=== PATIENT | female | born 1980 | race African-American/Black ===

== ENCOUNTER 2020-09-20 11:35 | Day surgery (SDC) | payer BC, MEDICAID ==
[2020-09-14 10:58] LABS: HEMATOCRIT 39.8 % (36.0-47.0); HEMOGLOBIN 13.5 g/dL (12.0-15.5); MEAN CORPUSCULAR HGB CONC 33.9 g/dL (32.0-36.0); MEAN CORPUSCULAR VOLUME 92 fl (80-97); PLATELET COUNT 362 10^3/uL (150-450); RED BLOOD COUNT 4.34 10^6/uL (3.72-5.28); RED CELL DISTRIBUTION WIDTH 13.8 % (11.5-14.0); WHITE BLOOD COUNT 5.8 10^3/uL (4.0-10.5)
[2020-09-14 10:59] LABS: APPEARANCE,URINE SLIGHTLY-CLOUDY; BILIRUBIN,URINE NEGATIVE (NEGATIVE); COLOR,URINE YELLOW; GLUCOSE, URINE NEGATIVE (NEGATIVE); KETONES,URINE NEGATIVE (NEGATIVE); LEUKOCYTE ESTERASE,URINE NEGATIVE (NEGATIVE); NITRITE,URINE NEGATIVE (NEGATIVE); PROTEIN,URINE 30 mg/dL (NEGATIVE); URINE SPECIFIC GRAVITY 1.019; UROBILINOGEN,URINE NEGATIVE mg/dL (<2.0)
[~2020-09-20 11:35] MED LIST: LACTATED RINGERS 1000 ML IV PRN; LIDOCAINE 0.5% INJ-PF (5 MG/ML) 50 ML SDV SUBCUT PRN
[2020-09-20] MEDS ORDERED: GLYCOPYRROLATE 1 MG/5 ML VIAL ONE (12:31)
[2020-09-20] MEDS ORDERED: NEOSTIGMINE METHYLSULFATE 10 MG/10 ML VIAL ONE (12:31)
[2020-09-20] MEDS ORDERED: SUCCINYLCHOLINE CHLORIDE INJ 200 MG/10 ML VIAL ONE (12:31)
[2020-09-20] MEDS ORDERED: ROCURONIUM BROMIDE INJ 50 MG/5 ML VIAL IV ONE (12:31)
[2020-09-20] MEDS ORDERED: DEXAMETHASONE SOD PHOSPHATE INJ 4 MG/1 ML VIAL ONE (14:15)
[2020-09-20] MEDS ORDERED: PROPOFOL INJ 200 MG/20 ML VIAL IV ONE (14:15)
[2020-09-20] MEDS ORDERED: KETOROLAC TROMETHAMINE 60 MG/2 ML SDV ONE (14:15)
[2020-09-20] MEDS ORDERED: ONDANSETRON HCL INJ/PF 4 MG/2 ML SDV ONE (14:15)
[2020-09-20] MEDS ORDERED: FENTANYL CITRATE INJ/PF 100 MCG/2 ML AMPUL ONE (14:15)
[2020-09-20] MEDS ORDERED: MIDAZOLAM 2 MG/2 ML INJ ONE (14:15)
--- NOTE | 2020-09-20 14:39 | Discharge Summary ---
Discharge Summary (SDC) - Discharge Final Diagnosis: Unwanted fertility Date of Surgery: 09/20/20 Discharge Date: 09/20/20 Condition: Stable Treatment or Instructions: Resume regular diet as tolerated No heavy lifting for 6 weeks Prescriptions: Ibuprofen [Motrin 800 mg Tablet] 800 mg PO Q8H PRN #30 tab PRN Reason: Hydrocodone/Acetaminophen [Stanton 5-325 mg Tablet] 1 tab PO Q6 PRN 5 Days #20 tablet PRN Reason: For Pain Scale 4-5 Hydrocodone/Acetaminophen [Stanton 5-325 mg Tablet] 1 tab PO Q6 PRN 5 Days #20 tablet PRN Reason: Referrals: MARIA TERESA CASTREJON MD [ACTIVE PROVISIONAL STAFF] - Respiratory Treatments at Home: Deep Breathing/Coughing Discharge Activity: Activity As Tolerated, No Lifting Over 10 Pounds, Walk Frequently Home Care Assistance: None Needed Report the Following to Your Physician Immediately: Vomiting, Increase in Pain, Fever over 101 Degrees, Unusual Bleeding, IV Site Infection Signs
[2020-09-20] MEDS ORDERED: PROMETHAZINE HCL INJ 25 MG/1 ML VIAL IV PRN ×2 (14:56)
[2020-09-20] MEDS ORDERED: DIPHENHYDRAMINE HCL 50 MG/ML VIAL IV PRN (14:56)
[2020-09-20] MEDS ORDERED: FENTANYL CITRATE INJ/PF 100 MCG/2 ML AMPUL IV PRN ×3 (14:56)
[2020-09-20] MEDS ORDERED: MEPERIDINE HCL/PF INJ 25 MG/1 ML DISP.SYRIN IV PRN (14:56)
--- NOTE | 2020-09-20 15:48 | Operative Report ---
Operative Report DATE OF SURGERY: 09/20/20 PREOPERATIVE DIAGNOSIS: Unwanted fertility POSTOPERATIVE DIAGNOSIS: Unwanted fertility OPERATION: Laparoscopic bilateral tubal ligation with filshie clips SURGEON: MARIA TERESA CASTREJON ANESTHESIA: GA TISSUE REMOVED OR ALTERED: None COMPLICATIONS: None ESTIMATED BLOOD LOSS: 5 cc INTRAOPERATIVE FINDINGS: Normal appearing uterus, bilateral fallopian tubes and ovaries. Left paratubal cyst noted with clear fluid-approximately 1.5 cm size. Liver edge was normal appearing. PROCEDURE: IV fluids: per anesthesia record Urinary output: Voided prior to OR Findings: Normal-appearing uterus bilateral fallopian tubes and ovaries. Adhesion between omentum and anterior abdominal wall. Liver edge appears normal Position: To recovery room in stable condition Description of procedure: The patient was taken to the operating room and general anesthesia was admi nistered and found to be adequate. She was then placed on the OR table in the dorsal lithotomy position. The Patient was prepped and draped in usual sterile fashion. Timeout was taken. A bivalve speculum was used to visualize the cervix. The anterior lip of the cervix was then grasped with a single tooth tenaculum and an acorn uterine manipulator was placed. At this time attention was turned to the patient's abdomen and sterile gloves were donned a 1 cm infra umbilical incision was made vertically and carried down to the level of the rectus fascia. The rectus fascia was then grasped with 2 Luis clamps elevated and incised with Addison scissors. A digital sweep was done noting entry into the peritoneum. The fascia was tagged bilaterally with 0- vicryl suture. A #10 Lynn trocar was positioned and CO2 gas was used to insufflate the abdomen to a quantity sufficient for the laparoscopy. The laparoscope was inserted and a survey was done of the abdomen pictures were obtained. Findings noted normal anatomy. The right fallopian tube was identified and traced to its fimbriated end. The right ovary was noted to be normal. A Filshie clip was then placed approximately 1 to 2 cm from the uterine cornu across the right fallopian tube. The Filshie clip was noted to surround the tube in its entirety good blanching and hemostasis was noted. The left fallopian tube was then traced to its fibriated end and a Filshie clip was placed 1 to 2 cm from the uterine cornu on the left fallopian tube. The Filshie clip was noted to surround the tube in its entirety with good blanching and hemostasis was noted. When attempting to flip the right fallopian tube to take a picture of the clips in place, a small area of bleeding was stirred up on the surface of the right round ligament. This was controled with cautery and hemostasis was obtained. Pictures were obtained. At this point the procedure was terminated. All instrument removed from the patient's abdomen and CO2 gas was allowed to escape. The infraumbilical port was removed. The fascia was closed with 0 Vicryl suture. The skin was closed with 3-0 Monocryl in a series of interrupted stitiches. The skin incision was then clean dried and Dermabond was applied over the skin incision. All instrument sponge and needle counts were correct x3 for the procedure the patient tolerated the procedure well. She will proceed to recovery room in stable condition
[2020-09-20] MEDS ORDERED: RINGERS SOLUTION,LACTATED 1,000 ML IV PRN (15:54)
[2020-09-20] MEDS ORDERED: OXYCODONE-ACETAMINOPHEN 5-325 MG TABLET PO PRN ×2 (15:55)
[2020-09-20] MEDS ORDERED: IBUPROFEN 800 MG TABLET PO PRN (16:00)
[2020-09-20] MEDS ORDERED: KETOROLAC TROMETHAMINE INJ/PF 30 MG/1 ML SDV IM PRN (16:00)
[2020-09-20] MEDS: FENTANYL CITRATE INJ/PF 100 MCG/2 ML AMPUL ONE ×2 (16:14→16:24)
[2020-09-20] MEDS ORDERED: OXYCODONE-ACETAMINOPHEN 5-325 MG TABLET ONE (16:42)
[2020-09-20] MEDS ORDERED: IBUPROFEN 800 MG TABLET ONE (17:41)
[2020-09-20 18:04] VITALS: BP 142/92
== END 2020-09-20 18:05 | disposition home or self-care (01) ==
LOC: OROUT 11:35
PROVIDERS: ATTEND Obstetrics & Gynecology
DX: Z30.2 Encounter for sterilization (principal); Z20.828 Contact with and (suspected) exposure to other viral communicable diseases
CPT/HCPCS: 36415; 85027; 81005; 81025; 00851; 58671; U0003; J2250; J3490 ×2; J1100; J1885; J3010; J2710; J0330; J2405; J2704; C9803; 851; 87635